=== PATIENT | male | born 1990 | race Two or more races ===

== ENCOUNTER → 2017-09-29 | Outpatient (CLI) | payer BC ==
[2017-09-29 17:33] LABS: INFLUENZA A PATIENT NEGATIVE (NEGATIVE); INFLUENZA B PATIENT NEGATIVE (NEGATIVE); OBC FLU VALID
[2017-09-30 12:08] LABS: NEGATIVE OBC STREP NEG; POSITIVE OBC STREP POS
== END | disposition home or self-care (01) ==
LOC: LAB 16:37
DX: J06.9 Acute upper respiratory infection, unspecified (principal)
CPT/HCPCS: 87070; 87804; 87804-59; 87880